=== PATIENT | male | born 1990 | race Hispanic/Latino ===

== ENCOUNTER 2019-04-26 14:13 | Emergency (ER) | payer BC ==
[~2019-04-26] VITALS: Ht 170.2 cm; Wt 108.9 kg
[2019-04-26] MEDS ORDERED: DEXAMETHASONE SOD PHOS 10 MG/1 ML VIAL IM ONE (15:15)
[2019-04-26 15:49] LABS: CLARITY,URINE CLEAR (CLEAR); COLOR,URINE YELLOW (YELLOW)
[2019-04-26 15:50] LABS: BILIRUBIN,URINE NEGATIVE (NEGATIVE); KETONES,URINE NEGATIVE (NEGATIVE); LEUKOCYTE ESTERASE ,URINE SMALL (NEGATIVE); NITRITE,URINE NEGATIVE (NEGATIVE); PROTEIN,URINE DIPSTICK NEGATIVE (NEGATIVE); URINE UROBILINOGEN 0.2 mg/dL (0.2 - 1)
[2019-04-26 16:02] LABS: BACTERIA,URINE MODERATE /HPF; EPITHELIAL CELLS,URINE FEW /LPF; RBC,URINE 21-50 /HPF (0-5); WBC,URINE (MAN) 21-50 /HPF (0-5)
[2019-04-26] MEDS ORDERED: LIDOCAINE HCL 1% 2 ML AMP ONE (16:28)
[2019-04-26] MEDS ORDERED: CEFTRIAXONE SOD 1 GM VIAL ONE (16:28)
[2019-04-26] MEDS ORDERED: CEFTRIAXONE SOD 1 GM VIAL IM ONE (16:30)
[2019-04-26] MEDS ORDERED: DEXAMETHASONE SOD PHOS 10 MG/1 ML VIAL ONE (16:30)
--- NOTE | 2019-04-26 17:00 | Diagnostic Imaging Report ---
EXAMINATION: CT of the abdomen and pelvis without contrast. TECHNIQUE: Helical CT images of the abdomen and pelvis were performed from the lung bases to the lesser trochanters. No intravenous contrast was given per renal stone protocol. Coronal and sagittal reformatted images were obtained.Dose modulation, iterative reconstruction, and/or weight based adjustment of the mA/kV was utilized to reduce the radiation dose to as low as reasonably achievable. COMPARISON: None. CLINICAL HISTORY:Bilateral flank pain DISCUSSION: ABSENCE OF INTRAVENOUS CONTRAST DECREASES SENSITIVITY FOR DETECTION OF FOCAL LESIONS AND VASCULAR PATHOLOGY. ABDOMEN/PELVIS: LOWER THORAX: Unremarkable. HEPATOBILIARY:No focal hepatic lesions. No biliary ductal dilation. The gallbladder is normal. SPLEEN: No splenomegaly. PANCREAS: No focal masses or ductal dilatation. ADRENALS: No adrenal nodules. KIDNEYS/URETERS: 4 mm nonobstructing left renal calculus. 3 mm calculus in the mid left ureter. PELVIC ORGANS/BLADDER: The bladder is normal. PERITONEUM/RETROPERITONEUM: No free air or fluid. LYMPH NODES: No intra-abdominal,retroperitoneal, pelvic or inguinal lymphadenopathy. VESSELS: Limited evaluation. GI TRACT: Appendix normal. BONES AND SOFT TISSUES: No bony destructive lesions. No soft tissue abnormalities. IMPRESSION: 3 mm calculus in the mid left ureter causing mild hydronephrosis. Signed by: Dr. Marcus Wilkes M.D. on 04/26/2019 4:58 PM
[2019-04-26] MEDS ORDERED: KETOROLAC TROMETHAMINE 60 MG/2 ML VIAL IM ONE (17:15)
[2019-04-26] MEDS ORDERED: KETOROLAC TROMETHAMINE 60 MG/2 ML VIAL ONE (17:16)
== END 2019-04-26 17:25 | disposition home or self-care (01) ==
LOC: ER 14:13
DX: N13.2 Hydronephrosis with renal and ureteral calculous obstruction (principal); K21.9 Gastro-esophageal reflux disease without esophagitis; Z88.1 Allergy status to other antibiotic agents
CPT/HCPCS: 74176; 81001; 87086; 87186; 99283; J0696; J1100; J1885; J2001

== ENCOUNTER → 2019-05-31 | Day surgery (SDC) | payer BC ==
--- NOTE | 2019-05-29 13:45 | Diagnostic Imaging Report ---
EXAM: Abdomen Radiograph 1 View(s) INDICATION: ^PREOP COMPARISON: None FINDINGS: The bowel gas pattern is nonspecific. Left ureteral stent in appropriate position. No radiopaque renal or ureteral calculi. No acute osseous abnormality. IMPRESSION: No acute abdominal radiographic abnormality. Signed by: Herman Moss MD on 05/29/2019 1:42 PM
[~2019-05-31] MED LIST: B&O 60MG R/S 60 MG SUPP PR ONE; CEFTRIAXONE SOD 1 GM/NS 50 ML 50 ML IV ONE; FENTANYL CITRATE/PF 100MCG/2 ML INJ ONE; IOPAMIDOL 300MG/ML 50ML INFUS..BTL IV ONE; LIDOCAINE HCL 2% LOCAL INJ 5 ML SDV VIAL INJ ONE; MIDAZOLAM HCL 2 MG/2 ML VIAL ONE; ONDANSETRON HCL INJ 2MG/ML 2ML 2 MG/ML VIAL ONE; OXYBUTYNIN CHLOR5 MG PO; PANTOPRAZOLE SO40 MG PO; PROPOFOL IV EMULSION 10 MG/ML 20 ML VIAL ONE; SEVOFLURANE INHAL SOLN 250 ML PEN BTL ONE
[2019-05-31 10:15] VITALS: BP 148/89
--- NOTE | 2019-05-31 18:13 | Operative Report ---
DATE OF PROCEDURE: 05/31/2019 SURGEON: Jordon Dior MD PREOPERATIVE DIAGNOSES: 1. Left nephrolithiasis. 2. Indwelling ureteral stent. POSTOPERATIVE DIAGNOSES: 1. Left nephrolithiasis. 2. Indwelling ureteral stent. OPERATION PERFORMED: Note, these were all staged procedures as part of multi-staged and multi-step process in managing patient's urolithiasis. 1. Cystourethroscopy with complicated removal of left indwelling ureteral stent (separate procedure performed with a separate scope for the diagnosis of the stent). 2. Radiological services for supervision and interpretation of ureteroscopy. 3. Interpretation of retrograde ureteropyelography. 4. Supervision of fluoroscopy, no radiologist present. 5. Left ureteroscopy with stone manipulation (separate procedure performed to dislodge and irrigate out fine sand remaining from the prior ESWL). 6. Interpretation of retrograde ureteropyelography. 7. Supervision of fluoroscopy, no radiologist present. ANESTHESIA: General. COMPLICATIONS: None. CLINICAL SUMMARY: Daniel Dang is a 29-year-old man, who had ureterolithiasis and who had stone. He underwent ESWL and stent placement. He is brought for the above procedures. He is aware of the risks of bleeding, infection, injury to adjacent structures, need for additional procedures and elected to proceed. OPERATIVE PROCEDURE IN DETAIL: Informed consent was verified. Daniel Dang was properly identified, taken to the operating room, placed on the cystoscopy table in supine position. Anesthesia was uneventfully begun. The patient was then carefully and gently repositioned in the dorsal lithotomy position with all pressure points well padded. His genitalia were prepared and draped in usual sterile fashion. The cystoscope sheath with a visual obturator in place was atraumatically inserted into the patient's urethra and it was guided down to the unremarkable distal urethra through the normal sphincteric region through the prostate bed, which was significant for being unremarkable. We entered the patient's bladder. Panendoscopy revealed no suspicious mucosal lesions, no tumors, no stones. There was a stent emerging from the left ureteral orifice with mild periureteral inflammation around it. A guidewire was then placed alongside the stent and guided to the level of the patient's kidney. The stent was then grasped, completely removed, and discarded. Semi-rigid ureteroscope was then placed alongside the guidewire and guided atraumatically up into the level of the mid ureter. There was some fine sand noted and the sand was irrigated to loosen it from the mucosa. A semi-rigid ureteroscope was withdrawn. A flexible ureteroscope was then placed over the guidewire and guided to the level of the patient's kidney. Panendoscopy of the intrarenal collecting system revealed some fine sand and Jamil's plaques throughout most papilla. We irrigated the fine sand to dislodge it and it should be passable. All of the small stone pieces were too small to grasp with a basket. We carefully re-examined the ureter as we exited. It did not reveal any stones, nor strictures, nor lesions. The cystoscope was reintroduced. The patient's bladder was drained. The cystoscope was withdrawn. A belladonna and opium suppository were placed revealing a 20 g prostate, smooth, nonfluctuant without any nodules. The patient was uneventfully reversed from anesthesia and taken to recovery room in stable condition. Interpretation of retrograde ureteropyelography: Contrast was instilled in retrograde fashion on left hand side. There were no suspicious lesions. There were no filling defects. No stones were visualized. There was no extravasation. Unobstructed drainage was observed fluoroscopically. There were no complications to the procedure. The patient tolerated the procedure well. PLAN: Will be to follow the patient up in the office in about 1 month to pursue metabolic stone workup. I instructed the patient's father to ensure that he instructs the patient to drop-off his previously passed stone filter and sand and stones, so that we may send his stone for chemical analysis. Jordon Dior MD [place]/MOD[facility] /[id number] cc: Jorge Luis Nj MD
== END | disposition home or self-care (01) ==
LOC: OR 07:00
PROVIDERS: ATTEND Urology
DX: N20.0 Calculus of kidney (principal); Z96.0 Presence of urogenital implants; Z88.8 Allergy status to other drugs, medicaments and biological substances; K21.9 Gastro-esophageal reflux disease without esophagitis; Z87.442 Personal history of urinary calculi; Z84.1 Family history of disorders of kidney and ureter
CPT/HCPCS: 52352; 74018; 74420; C1769; J0696; J2001; J2250; J2405; J2704; J3010; Q9967